=== PATIENT | male | born 1950 | race Caucasian/White ===

== ENCOUNTER 2020-06-18 21:55 | Inpatient (IN) | payer OTHER ==
[~2020-06-18] VITALS: Ht 182.9 cm; Wt 90.7 kg
[2020-06-18 22:15] LABS: BASOPHILS % (AUTO) 1 % (0-1); EOSINOPHILS % (AUTO) 1 % (1-7); LYMPHOCYTES % (AUTO) 15 % (22-44); MD NO; MEAN CORPUSCULAR HEMOGLOBIN 31.9 pg (27.5-34.5); MEAN PLATELET VOLUME 7.4 fL (7.4-10.4); MONOCYTES % (AUTO) 3 % (2-9); NEUTROPHILS % (AUTO) 80 % (42-75); PLATELET COUNT 193 x10^3/uL (130-400); RED BLOOD COUNT 4.86 x10^6/uL (4.38-5.82); RED CELL DISTRIBUTION WIDTH 13.6 % (9.4-14.8)
[2020-06-18] MEDS ORDERED: ONDANSETRON 2MG/ML, 2ML ONE (22:16)
[2020-06-18] MEDS ORDERED: MORPHINE SULFATE 4 MG/ML, 1ML ONE (22:16)
[2020-06-18 22:26] LABS: ALANINE AMINOTRANSFERASE 33 U/L (12-78); ALBUMIN 3.5 g/dL (3.4-5.0); ANION GAP 7 mmol/L (5-15); CALCIUM 8.2 mg/dL (8.5-10.1); CHLORIDE 111 mmol/L (98-107); CREATININE 1.08 mg/dL (0.7-1.3)
[2020-06-18] MEDS ORDERED: MORPHINE SULFATE 4 MG/ML, 1ML IVPush PRN (22:30)
[2020-06-18] MEDS ORDERED: SODIUM CHLORIDE FLUSH 10ML SYR IVF ONE (22:30)
[2020-06-18] MEDS ORDERED: PLEASE ENTER ALLERGIES MC SCH (22:30)
[2020-06-18] MEDS ORDERED: ONDANSETRON 2MG/ML, 2ML IVPush ONE (22:30)
[2020-06-18 22:31] LABS: ALKALINE PHOSPHATASE 63 U/L (45-117); BILIRUBIN,TOTAL 0.4 mg/dL (0.2-1.0); TROPONIN I 0.081 ng/mL (0.000-0.045)
[2020-06-18 23:28] VITALS: BP 119/78
[2020-06-18] MEDS ORDERED: HYDROCODONE (23:34)
[2020-06-18] MEDS ORDERED: LIPITOR (23:34)
[2020-06-18] MEDS ORDERED: ELIQUIS (23:34)
[2020-06-18] MEDS ORDERED: METHOCARBAMOL (23:35)
[2020-06-18] MEDS ORDERED: PRILOSEC (23:36)
[2020-06-18] MEDS ORDERED: PROZAC (23:36)
[2020-06-19] MEDS ORDERED: sumatriptan (03:41)
[2020-06-19] MEDS ORDERED: ONDANSETRON 2MG/ML, 2ML IVPush PRN (04:00)
[2020-06-19] MEDS ORDERED: ENALAPRILAT 1.25 MG/ML, 2ML IVPush PRN (04:00)
[2020-06-19] MEDS ORDERED: morphine SULFATE 10 MG/ML, 1ML IVPush PRN (04:00)
[2020-06-19] MEDS: ACETAMINOPHEN 325 MG TABLET PO PRN ×3 (04:10→14:55)
[2020-06-19 04:12] VITALS: BP 103/71
[2020-06-19 06:26] LABS: CHOL/HDL RATIO 3.1; CHOLESTEROL, TOTAL 121 mg/dL (140-239); HDL CHOL % 32 % (26-37); HDL CHOLESTEROL (DIRECT) 39 mg/dL (40-60); LDL CHOLESTEROL,CALCULATED 62 mg/dL (54-169); LDL/HDL RATIO 1.6 (0.5-3.0); TRIGLYCERIDES 102 mg/dL (50-200); VLDL CHOLESTEROL 20 mg/dL (0-25)
[2020-06-19 07:10] VITALS: BP 108/68
[2020-06-19 08:39] LABS: TROPONIN I 0.862 ng/mL (0.000-0.045)
[2020-06-19] MEDS: APIXABAN 5 MG TABLET PO SCH (09:36)
[2020-06-19] MEDS ORDERED: REGADENOSON 0.4 MG/5 ML SYRINGE ONE (10:36)
[2020-06-19] MEDS ORDERED: HYDROcodone/APAP 5/325 TABLET PO PRN ×2 (11:30)
[2020-06-19] MEDS ORDERED: METHOCARBAMOL 750 MG TABLET PO PRN (11:30)
[2020-06-19 12:27] VITALS: BP 119/74
[2020-06-19 19:46] VITALS: BP 102/62
[2020-06-19] MEDS: ATORVASTATIN 40 MG TABLET PO SCH (19:54)
[2020-06-19] MEDS ORDERED: HEPARIN 25,000 UNITS/250ML PMX 250 ML IV PRN (21:00)
[2020-06-20 00:47] VITALS: BP 109/70
[2020-06-20 05:12] LABS: BASOPHILS % (AUTO) 1 % (0-1); EOSINOPHILS % (AUTO) 2 % (1-7); LYMPHOCYTES % (AUTO) 24 % (22-44); MEAN CORPUSCULAR HEMOGLOBIN 31.8 pg (27.5-34.5); MEAN CORPUSCULAR HGB CONC 33.7 g/dL (33.2-36.2); MEAN PLATELET VOLUME 7.8 fL (7.4-10.4); MONOCYTES % (AUTO) 9 % (2-9); NEUTROPHILS % (AUTO) 65 % (42-75); PLATELET COUNT 181 x10^3/uL (130-400); RED BLOOD COUNT 4.66 x10^6/uL (4.38-5.82); RED CELL DISTRIBUTION WIDTH 13.9 % (9.4-14.8)
[2020-06-20 05:13] LABS: MD NO
[2020-06-20 05:24] LABS: ANION GAP 4 mmol/L (5-15); CALCIUM 8.1 mg/dL (8.5-10.1); CHLORIDE 112 mmol/L (98-107); CREATININE 0.76 mg/dL (0.7-1.3)
[2020-06-20] MEDS ORDERED: HEPARIN wt. based STROKE protocol MC PRN (06:00)
[2020-06-20] MEDS: OMEPRAZOLE 20 MG CAPSULE.DR PO SCH (06:09)
[2020-06-20] MEDS: ACETAMINOPHEN 325 MG TABLET PO PRN (08:58)
[2020-06-20] MEDS: FLUOXETINE HCL 20 MG CAPSULE PO SCH (08:58)
[2020-06-20 09:00] VITALS: BP 119/70
[2020-06-20 13:05] VITALS: BP 124/73
[2020-06-20] MEDS ORDERED: VERAPAMIL 2.5 MG/ML, 2ML ONE (13:49)
[2020-06-20] MEDS ORDERED: FENTANYL PF 100 MCG/2ML ONE (13:49)
[2020-06-20] MEDS ORDERED: LIDOCAINE-MPF 1%, 5ML ONE (13:49)
[2020-06-20] MEDS ORDERED: MIDAZOLAM 1 MG/ML, 2ML ONE ×2 (13:49→14:35)
[2020-06-20] MEDS ORDERED: BIVALIRUDIN 250 MG ONE (13:49)
[2020-06-20] MEDS ORDERED: HEPARIN 1,000 UNITS/ML, 10ML ONE (13:49)
[2020-06-20] MEDS ORDERED: TICAGRELOR 90 MG TABLET ONE (14:35)
[2020-06-20] MEDS ORDERED: SODIUM CHLORIDE 0.9% 1,000 ML IV SCH (15:00)
[2020-06-20 19:02] VITALS: BP 133/79
[2020-06-20] MEDS ORDERED: MELATONIN 5 MG TABLET PO PRN (20:30)
[2020-06-20] MEDS: ATORVASTATIN 40 MG TABLET PO SCH (20:39)
[2020-06-20] MEDS: APIXABAN 5 MG TABLET PO SCH (20:40)
[2020-06-20] MEDS: TICAGRELOR 90 MG TABLET PO SCH (20:40)
[2020-06-21 01:02] VITALS: BP 135/82
[2020-06-21] MEDS: OMEPRAZOLE 20 MG CAPSULE.DR PO SCH (05:40)
[2020-06-21 05:47] LABS: BASOPHILS % (AUTO) 1 % (0-1); EOSINOPHILS % (AUTO) 2 % (1-7); LYMPHOCYTES % (AUTO) 15 % (22-44); MEAN CORPUSCULAR HEMOGLOBIN 31.8 pg (27.5-34.5); MEAN CORPUSCULAR HGB CONC 34.2 g/dL (33.2-36.2); MEAN PLATELET VOLUME 7.8 fL (7.4-10.4); MONOCYTES % (AUTO) 9 % (2-9); NEUTROPHILS % (AUTO) 74 % (42-75); PLATELET COUNT 198 x10^3/uL (130-400); RED BLOOD COUNT 4.81 x10^6/uL (4.38-5.82); RED CELL DISTRIBUTION WIDTH 13.7 % (9.4-14.8)
[2020-06-21 05:49] LABS: CHLORIDE 111 mmol/L (98-107)
[2020-06-21 05:53] LABS: MD NO
[2020-06-21 06:12] LABS: ANION GAP 5 mmol/L (5-15); CALCIUM 8.4 mg/dL (8.5-10.1); CREATININE 0.99 mg/dL (0.7-1.3)
[2020-06-21 07:06] VITALS: BP 128/74
[2020-06-21] MEDS ORDERED: ASPIRIN 81 MG TABLET EC PO SCH (09:00)
[2020-06-21] MEDS: ACETAMINOPHEN 325 MG TABLET PO PRN (10:30)
[2020-06-21] MEDS: APIXABAN 5 MG TABLET PO SCH (10:31)
[2020-06-21] MEDS: FLUOXETINE HCL 20 MG CAPSULE PO SCH (10:31)
[2020-06-21] MEDS: TICAGRELOR 90 MG TABLET PO SCH (10:31)
[2020-06-21] MEDS ORDERED: ATOR40TA78 PO (11:10)
[2020-06-21] MEDS ORDERED: ASPI81TA45 PO (11:10)
[2020-06-21] MEDS ORDERED: TICA90TA PO ×2 (11:10)
[2020-06-21] MEDS ORDERED: CLOP75TA PO (15:41)
== END 2020-06-21 12:45 | disposition home or self-care (01) | DRG 247 ==
LOC: ED 23:07 → EDIP 23:37 → 5SO 23:44 → DCLOUNGE 06-21 12:33
PROVIDERS: ADMIT Family Medicine; ATTEND Family Medicine
PROC: 4A023N7 Measurement of Cardiac Sampling and Pressure, Left Heart, Percutaneous Approach (ICD-10-PCS; principal; 2020-06-20)
PROC: 027034Z Dilation of Coronary Artery, One Artery with Drug-eluting Intraluminal Device, Percutaneous Approach (ICD-10-PCS; 2020-06-20)
PROC: B2111ZZ Fluoroscopy of Multiple Coronary Arteries using Low Osmolar Contrast (ICD-10-PCS; 2020-06-20)
PROC: B2151ZZ Fluoroscopy of Left Heart using Low Osmolar Contrast (ICD-10-PCS; 2020-06-20)
DX: I21.4 Non-ST elevation (NSTEMI) myocardial infarction (principal); D68.59 Other primary thrombophilia; D72.829 Elevated white blood cell count, unspecified; G89.29 Other chronic pain; I25.10 Atherosclerotic heart disease of native coronary artery without angina pectoris; N40.0 Benign prostatic hyperplasia without lower urinary tract symptoms; E78.5 Hyperlipidemia, unspecified; M54.9 Dorsalgia, unspecified; Z79.01 Long term (current) use of anticoagulants; Z82.49 Family history of ischemic heart disease and other diseases of the circulatory system; Z86.711 Personal history of pulmonary embolism; Z86.718 Personal history of other venous thrombosis and embolism; Z87.891 Personal history of nicotine dependence
CPT/HCPCS: 36415; 93017; 93458; 96374; 96375; 99285; C9600; 71045; 78452; 80048; 80053; 80061; 83880; 84484; 85025; 85379; 85520; 93005; 93306; 99156; 99157; C1769; C1894; G0378; J0583; J1644; J2250; J2405; J2785; J3010; A9502; C1725; C1874; C1887; J2270; Q9967